=== PATIENT | male | born 1960 | race Two or more races ===

== ENCOUNTER → 2024-11-29 | Outpatient (CLI) | payer MEDICARE, MEDICAID, SELFPAY ==
[2024-11-29 09:14] LABS: Basophils # (Auto) 0.1 Thou/mm3 (0.0-0.2); Basophils % (Auto) 1 % (0-2.5); Eosinophils # (Auto) 0.1 Thou/mm3 (0.0-0.5); Eosinophils % (Auto) 1 % (0-10); Hematocrit 45.3 % (41.0-53.0); Hemoglobin 15.3 g/dL (13.5-16.0); Immature Granulocytes % (Auto) 1 % (0-0); Immature Granulocytes Auto 0.09 Thou/mm3 (0.00-0.00); Lymphocytes # (Auto) 2.6 Thou/mm3 (1.0-4.8); Lymphocytes % (Auto) 32 % (10-50); Mean Corpuscular HGB Conc 33.8 g/dl (31.0-37.0); Mean Corpuscular Volume 86 fL (80-100); Monocytes # (Auto) 0.7 Thou/mm3 (0.0-0.8); Monocytes % (Auto) 9 % (0-12); Neutrophils # (Auto) 4.6 Thou/mm3 (1.8-7.7); Neutrophils % (Auto) 57 % (37-80); Nucleated Red Blood Cell % 0 /100 WBC (0); Platelet Count 214 Thou/mm3 (140-440); RDW Standard Deviation 47.3 fL (35.1-43.9); Red Blood Count 5.27 Miln/mm3 (4.50-5.90)
[2024-11-29 09:24] LABS: Prostate Specific Antigen 7.32 ng/mL (0-4.00)
[2024-11-29 09:33] LABS: Alanine Aminotransferase 65 U/L (10-49); Albumin, Serum 4.1 gm/dL (3.4-4.8); Albumin/Globulin Ratio 1.6 (1.2-2.2); Alkaline Phosphatase 39 U/L (46-116); Anion Gap 8 (7-16); Aspartate Amino Transferase 23 U/L (0-34); BUN/Creatinine Ratio 18 Ratio (12-20); Bilirubin,Total 0.5 mg/dL (0.3-1.2); Blood Urea Nitrogen 20 mg/dL (9-23); Calcium 8.8 mg/dL (8.3-10.6); Calcium (Corrected) 8.8 mg/dL (8.5-10.1); Carbon Dioxide 27.3 mMol/L (20.0-31.0); Cardiac Risk Estimate 3.1 RATIO (4.0-6.7); Chloride 109 mMol/L (98-107); Cholesterol 132 mg/dL (132-200); Creatinine (Component) 1.1 mg/dL (0.6-1.3); Free T3 2.6 pg/mL (2.3-4.2); Free T4 (Free Thyroxine) 1.52 ng/dL (0.89-1.76); Globulin 2.5 gm/dL (2.3-3.5); Glucose 89 mg/dL (74-106); HDL Cholesterol 42 mg/dL (40-60); LDL Cholesterol,Calculated 66 mg/dL (0-130); Osmolality,Calculated 288 (275-295); Potassium 4.2 mMol/L (3.4-5.1); Sodium 144 mMol/L (136-145); Total Protein 6.6 gm/dL (5.7-8.2); Triglycerides 118 mg/dL (30-150); eGFR > 60 See Note
== END | disposition home or self-care (01) ==
LOC: COPL 08:13
PROVIDERS: PCP Nurse Practitioner Primary Care; Referring Provider Nurse Practitioner Primary Care; Visit Provider Nurse Practitioner Primary Care
DX: Z00.00 Encounter for general adult medical examination without abnormal findings (principal)
CPT/HCPCS: 36415; 80053; 80061; 84153; 84439; 84443; 84481; 85025

== ENCOUNTER → 2024-12-10 | Outpatient (BNVA) | payer MEDICARE, MEDICAID, SELFPAY | END | disposition home or self-care (01) | PROVIDERS: Visit Provider Urology | DX: N40.1 Benign prostatic hyperplasia with lower urinary tract symptoms (principal); N13.8 Other obstructive and reflux uropathy; R35.0 Frequency of micturition; Z98.890 Other specified postprocedural states; N47.1 Phimosis; I10 Essential (primary) hypertension; E11.9 Type 2 diabetes mellitus without complications; E66.9 Obesity, unspecified; E78.00 Pure hypercholesterolemia, unspecified | CPT/HCPCS: 81003; 99212; G0463 ==

== ENCOUNTER → 2024-12-21 | Outpatient (BNVA) | payer MEDICARE, MEDICAID, SELFPAY | END | disposition home or self-care (01) | PROVIDERS: PCP Nurse Practitioner Primary Care; Referring Provider Nurse Practitioner Primary Care; Visit Provider Urology | DX: N40.1 Benign prostatic hyperplasia with lower urinary tract symptoms (principal); N13.8 Other obstructive and reflux uropathy; N47.1 Phimosis; Z98.890 Other specified postprocedural states; I10 Essential (primary) hypertension; E11.9 Type 2 diabetes mellitus without complications; E66.9 Obesity, unspecified; Z68.30 Body mass index [BMI] 30.0-30.9, adult; E78.00 Pure hypercholesterolemia, unspecified | CPT/HCPCS: 81003; 99213; G0463 ==

== ENCOUNTER 2024-12-22 20:19 | Emergency (ER) | payer MEDICARE, MEDICAID, SELFPAY ==
[2024-12-22 20:32] VITALS: BP 130/85; PULSE 69; RESP 18; TEMP 37.2; O2SAT 95
--- NOTE | 2024-12-22 20:43 | PD.EDMALE ---
ED Male Genitalurinary RME/HPI General Chief complaint: Urogenital-Male Stated complaint: NOT URINATING X 3 DAYS Time Seen by Provider: 12/22/24 20:35 Arrival date/time: 12/22/24 20:19 64M with history of BPH, DM, and HTN presents to ED with 3 days of difficulty urinating. Patient saw urologist earlier today. He has surgery planned in January. Patient denies dysuria/hematuria. Limitations: no limitations Related Data Home Medications ?Medication ?Instructions ?Recorded ?Confirmed lisinopril 20 mg tablet 20 mg PO QDAY 04/18/22 12/21/24 metformin 500 mg tablet 500 mg PO BID 02/25/23 12/21/24 finasteride 5 mg tablet 5 mg PO QDAY 02/23/24 12/21/24 sitagliptin phosphate 25 mg tablet 25 mg PO QDAY 02/23/24 12/21/24 (Januvia) tamsulosin 0.4 mg capsule 0.8 mg PO QHS 12/10/24 12/21/24 Allergies Allergy/AdvReac Type Severity Reaction Status Date / Time No Known Allergies Allergy Verified 12/22/24 20:29 Review of Systems Review of Systems Systems Reviewed: All systems reviewed, normal except as documented Constitutional Constitutional: Reports system reviewed and no additional complaints, except as documented, Denies fever(s) and Denies headache(s) ENT Ears, Nose, Mouth, and Throat: Denies disequilibrium and Denies headache(s) Cardiovascular Cardiovascular: Reports system reviewed and no additional complaints, except as documented, Denies chest pain and Denies dyspnea Respiratory Respiratory: Reports system reviewed and no additional complaints, except as documented, Denies cough and Denies dyspnea Gastrointestinal Gastrointestinal: Reports system reviewed and no additional complaints, except as documented, Denies abdominal pain, Denies nausea and Denies vomiting Genitourinary Genitourinary: Reports as per HPI and Reports difficulty urinating Neurologic Neurologic: Reports system reviewed and no additional complaints, except as documented, Denies confusion, Denies disequilibrium and Denies headache(s) Psychiatric Psychiatric: Denies confusion Past Medical History Past Medical History NEUROLOGIC: Negative Neurological Disorders or Seizures CARDIAC: Positive Cardiac Disorders, Hypercholesterolemia and Hypertension; Negative Congestive Heart Failure RESPIRATORY: Negative Chronic Obstructive Pulmonary Disease (COPD) GASTROINTESTINAL: Negative Gastrointestinal Disorders GENITOURINARY: Positive Genitourinary Disorders and Benign Prostatic Hyperplasia; Negative Renal Disease REPRODUCTIVE: Negative Fibroids MUSCULOSKELETAL: Positive Musculoskeletal Disorders and Arthritis (Knees) ENDOCRINE: Negative Endocrine Disorders, Diabetes Mellitus Type 1 or Diabetes Mellitus Type 2 HEMATOLOGIC: Negative Blood Disorders OTHER HISTORY: Negative Autoimmune Disease, Blood Transfusions or Anesthesia Reactions Surgical History SURGICAL: Positive Transurethral Resection Social History SMOKING STATUS: Never smoker ED Exam General Limitations: Present no limitations General appearance: Present alert and in no apparent distress Head Head exam: Present atraumatic Eye Eye exam: Present normal appearance, PERRL and EOMI ENT ENT exam: Present normal exam, normal oropharynx and mucous membranes moist Neck Neck exam: Present normal inspection, full ROM and trachea midline Chest Chest inspection: Present normal inspection and symmetric chest wall rise Respiratory Respiratory exam: Present normal lung sounds bilaterally Cardiovascular Cardiovascular exam: Present regular rate, normal rhythm and normal heart sounds Abdominal Exam Abdominal exam: Present soft and normal bowel sounds Extremities Exam Extremities exam: Present normal inspection and full ROM Back Exam Back exam: Present normal inspection and full ROM Neurological Exam Neurological exam: Present alert, oriented X3 and CN II-XII intact Psychiatric Psychiatric exam: Present normal affect and normal mood Skin Skin exam: Present warm, dry, intact and normal color Course Quality Measures none Orders Category Date Time Status Catheter [Urinary Catheter] QS Care 12/22/24 20:42 Active Peguero to Leg Bag Routine Care 12/22/24 20:42 Ordered Vital Signs Vital signs: Vital Signs Temperature 99.0 F 12/22/24 20:32 Pulse Rate 69 12/22/24 20:32 Respiratory Rate 18 12/22/24 20:32 Blood Pressure 130/85 H 12/22/24 20:32 Pulse Oximetry (%) 95 12/22/24 20:32 Oxygen Delivery Method Room Air 12/22/24 20:32 O2 at 95% on RA and WNLs Urogenital - Male MDM Narrative MDM Narrative:: 64M with history of BPH, DM, and HTN presents to ED with 3 days of difficulty urinating. Patient saw urologist earlier today. He has surgery planned in January. Patient denies dysuria/hematuria. Physical exam reveals no pelvic tenderness. Patient is afebrile, calm, and alert. Patient refused cath/Peguero bag. They state they will follow-up with urologist. Patient data External records reviewed:: [facility] previous records Clinical information provided by:: patient Social determinants that could affect healthcare access:: none Patient has the following chronic illnesses:: BPH, DM, and HTN How is presenting disease/condition affected by chronic disease/condition?: caused by Evaluation data The following diagnostics were reviewed and interpreted by me:: other (specify) (none) Lab and/or radiology exams considered but not ordered:: not ordered Interpretation Summary: n/a Medications / Prescriptions Medications or Prescriptions considered but not ordered:: not ordered Medication administrations:: n/a Consultations Consultation(s) initiated? (list below): No Diagnosis Urogenital Male Differential Diagnosis: urinary tract infection, priapism, urethritis, epididymitis, genital herpes simplex, prostatitis, acute retention of urine and inguinal hernia Most likely diagnosis given after review of the tests above:: acute retention of urine Admission Indicated Admission indicated?: not indicated Admission Request Was there a request for admission?: No Disposition Plan Disposition Plan: Discharge Discharge Attestation Discharge Attestation: The patient and all family members were given an opportunity to ask questions and understood the discharge instructions. Discharge instructions specifically effects, indications for sooner follow up or return to the emergency department, and the expected course of current diagnosis. Patient condition: Stable Discharge Plan Plan Patient Disposition: HOME (Self Care) Disposition Comment: Stable Prescriptions/Referrals Prescriptions/Med Rec: No Action metformin 500 mg tablet 500 mg PO BID finasteride 5 mg tablet 5 mg PO QDAY Januvia 25 mg tablet 25 mg PO QDAY lisinopril 20 mg Tablet 20 mg PO QDAY tamsulosin 0.4 mg capsule 0.8 mg PO QHS Problem List Clinical Impression: Acute retention of urine Patient/Caregiver Discharge Instructions Education Materials: ED Urinary Retention, Male Additional Instructions: Please follow-up with PCP within 24-48 hours and return immediately if symptoms worsen. Follow-up with urologist/PCP for void trial. Print Language: Faroese Stand Alone Forms: Patient Portal Info Letter LUCRETIA/SUPRIYA Supervising Physician LUCRETIA/SUPRIYA Supervising Physician: Dr. Giang
== END 2024-12-22 21:00 | disposition home or self-care (01) ==
LOC: SERX 21:01
PROVIDERS: Emergency Provider Emergency Medicine
DX: N40.1 Benign prostatic hyperplasia with lower urinary tract symptoms (principal); R33.8 Other retention of urine; E11.9 Type 2 diabetes mellitus without complications; I10 Essential (primary) hypertension
CPT/HCPCS: 99281

== ENCOUNTER → 2025-01-17 | Outpatient (BNVA) | payer MEDICARE, MEDICAID, SELFPAY | END | disposition home or self-care (01) | PROVIDERS: PCP Nurse Practitioner Primary Care; Referring Provider Nurse Practitioner Primary Care; Visit Provider Urology | DX: N35.811 Other urethral stricture, male, meatal (principal); N32.89 Other specified disorders of bladder; N40.1 Benign prostatic hyperplasia with lower urinary tract symptoms; N13.8 Other obstructive and reflux uropathy; I10 Essential (primary) hypertension; E78.00 Pure hypercholesterolemia, unspecified | CPT/HCPCS: 52281; 81003; A4217; A4649; C1894; J1580; A9270 ==

== ENCOUNTER → 2025-02-11 | Outpatient (BNVA) | payer MEDICARE, MEDICAID, SELFPAY | END | disposition home or self-care (01) | PROVIDERS: PCP Nurse Practitioner Primary Care; Referring Provider Nurse Practitioner Primary Care; Visit Provider Student in an Organized Health Care Education/Training Program | DX: Z76.89 Persons encountering health services in other specified circumstances (principal) | CPT/HCPCS: 99212; G0463 ==

== ENCOUNTER 2025-02-16 09:45 | Day surgery (SDC) | payer MEDICARE, MEDICAID, SELFPAY ==
--- NOTE | 2025-02-15 08:15 | EKG_ITS ---
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
[2025-02-15 10:25] VITALS: BMI 34.4
[2025-02-15 12:28] LABS: Alanine Aminotransferase 58 U/L (10-49); Albumin, Serum 4.3 gm/dL (3.4-4.8); Albumin/Globulin Ratio 1.7 (1.2-2.2); Alkaline Phosphatase 44 U/L (46-116); Anion Gap 4 (7-16); Aspartate Amino Transferase 34 U/L (0-34); BUN/Creatinine Ratio 14 Ratio (12-20); Bilirubin,Total 0.6 mg/dL (0.3-1.2); Blood Urea Nitrogen 15 mg/dL (9-23); Calcium 9.4 mg/dL (8.3-10.6); Calcium (Corrected) 9.4 mg/dL (8.5-10.1); Carbon Dioxide 27.2 mMol/L (20.0-31.0); Chloride 111 mMol/L (98-107); Creatinine (Component) 1.1 mg/dL (0.6-1.3); Globulin 2.6 gm/dL (2.3-3.5); Glucose 102 mg/dL (74-106); Osmolality,Calculated 283 (275-295); Sodium 142 mMol/L (136-145); Total Protein 6.9 gm/dL (5.7-8.2); eGFR > 60 See Note
--- NOTE | 2025-02-15 15:03 | SUR.PREOP ---
Message left with pt's daughter to come in tomorrow at 1000.
[2025-02-16] VITALS (10 sets, daily range): BP systolic 125–152; BP diastolic 74–89; PULSE 48–64; RESP 12–18; TEMP 36.1–36.7; O2SAT 95–100; BMI 31.7
--- NOTE | 2025-02-16 15:28 | SUR.PHASEI ---
1528: Pt. AAOx4, vitals stable, breathing unlabored, no complaint of pain or nausea, dressing to penis CDI, no active bleed noted, report received from MD Lyle and Waqas SUMMERS.
[2025-02-16] MEDS: fentaNYL CIT INJ 50 mCg/ML AMP 2ML 25 MCG IV (15:38)
--- NOTE | 2025-02-16 15:45 | PD.SUROPNT ---
Date of Procedure 02/16/25 Pre Op Diagnosis Phimosis, balanitis xerotica obliterans, preputial adhesions Post Op Diagnosis Same Procedure Release of the adhesions of the prepuce and circumcision Findings Balanitis xerotica obliterans, dense preputial adhesions, phimosis Procedure Description Indication for procedure this is a 65-year-old gentleman he was seen in urology office this patient has phimosis, balanitis the xerotica obliterans patient was bothered by it he desired circumcision he also has the preputial adhesions. He was recommended release of the adhesions and circumcision procedure and complications were discussed with patient in great detail informed consent is obtained Patient was brought to the operating room in a satisfactory condition after appropriate premedication he was appropriately identified by surgeon and operating room staff site scope and indications of the procedure were reconfirmed with the patient general anesthesia was given uneventfully after patient was positioned on the operating table in a spine position parts were prepped and draped in the usual sterile fashion. Next local anesthetic was administered in the preputial area. I dilated the prepuce and released the preputial adhesions which were dense matted with the glans penis next circumferential skin incision was made in the skin aspect of the prepuce. It was carried down to various fascial layers prepuce was a retracted and another circumferential incision was made on the mucosal aspect of the prepuce leaving a cuff of about 7 to 8 mm. Skin between 2 incision was excised proper hemostasis were secured next skin to mucosa was approximated with 3-0 chromic in interrupted fashion, at the end of the procedure no active bleeding was seen. Sterile dressings were applied to the penis in the area of the incision. Next patient after having tolerated the procedure well was sent to recovery room in a satisfactory condition to be discharged home he will see me in the office tomorrow morning. Postoperative instructions are given to patient verbally as well as in writing Anesthesia GETA Pathology / specimen Other ([place]) Estimated Blood Loss 3.0 Condition Stable Disposition PACU Surgeon Ana Marrero MD Surgical Staff Operation Date: 02/16/25 13:30 Case Staff Anesthesiologist: Yossi Lyle RN First Assistant: Brittney Yan
--- NOTE | 2025-02-16 16:21 | SUR.PHASEII ---
1621: Pt. AAOx4, vitals stable, breathing unlabored, no complaint of pain or nausea, dressing to penis CDI and secured, pt. tolerated sips of apple juice well, pt. meets discharge criteria, pt. disconnected from vitals machine and is starting to get dressed with assist from his . Report given to Linda Bedolla RN to resume care/ give discharge instructions.
--- NOTE | 2025-02-16 16:21 | SUR.PHASEII ---
1621 Report received from Antonella SUMMERS, patient awake and alert, ready to proceed with discharge
--- NOTE | 2025-02-16 16:59 | SUR.PHASEII ---
1659 Patient meets discharge criteria from recovery, awake and alert, breathing unlabored, vital signs stable, denies pain, dressing intact; no bleeding noted, denies nausea, patient assisted with dressing into her clothing by his and son, discharge instructions given to patient, patient and son with the assistance of the telephone certified court interpreter Marina ID#[id number], patient son signed discharge instructions. Patient given all his belongings prior to discharge, transported via wheelchair and left in a private vehicle.
== END 2025-02-16 16:59 | disposition home or self-care (01) ==
PROVIDERS: Anesthesiology; PCP Nurse Practitioner Primary Care; Referring Provider Urology; Visit Provider Urology
PROC: (CPT 54161; principal; 2025-02-16 13:30)
DX: N47.1 Phimosis (principal); N48.0 Leukoplakia of penis; N47.5 Adhesions of prepuce and glans penis
CPT/HCPCS: 54161; 36415; 80053; 93005; A4217; A4649; J0131; J0461; J1885; J2250; J2405; J2704; J2765; J3010; J3490; A9270; J0665

== ENCOUNTER → 2025-02-17 | Outpatient (BNVA) | payer MEDICARE, MEDICAID, SELFPAY | END | disposition home or self-care (01) | PROVIDERS: PCP Nurse Practitioner Primary Care; Referring Provider Nurse Practitioner Primary Care; Visit Provider Urology | DX: N40.1 Benign prostatic hyperplasia with lower urinary tract symptoms (principal); N13.8 Other obstructive and reflux uropathy; R35.0 Frequency of micturition; R97.20 Elevated prostate specific antigen [PSA]; Z98.890 Other specified postprocedural states; I10 Essential (primary) hypertension; E78.00 Pure hypercholesterolemia, unspecified | CPT/HCPCS: 99212; 99213; G0463 ==

== ENCOUNTER → 2025-04-12 | Outpatient (BNVA) | payer MEDICARE, MEDICAID, SELFPAY | END | disposition home or self-care (01) | PROVIDERS: PCP Nurse Practitioner Primary Care; Referring Provider Nurse Practitioner Primary Care; Visit Provider Urology | DX: N40.1 Benign prostatic hyperplasia with lower urinary tract symptoms (principal); N13.8 Other obstructive and reflux uropathy; I10 Essential (primary) hypertension; E78.00 Pure hypercholesterolemia, unspecified; Z46.6 Encounter for fitting and adjustment of urinary device | CPT/HCPCS: 99212; 99213; G0463 ==

== ENCOUNTER 2025-06-14 07:12 | Emergency (ER) | payer MEDICARE, MEDICAID, SELFPAY ==
[2025-06-14 07:29] VITALS: BP 132/84; PULSE 97; RESP 20; TEMP 36.8; O2SAT 96; BMI 30.3
--- NOTE | 2025-06-14 07:32 | EDRME_ITS ---
Rapid Medical Screening Exam [facility] Arrival date/time: 06/14/25 07:12 65-year-old male presents to the emergency room today for complaint of lower abdominal pain ongoing x 4 days. Patient was seen in [facility] lab work and imaging ordered patient to be seen in the main ER for further evaluation. Chief Complaint: Abdominal Pain Time Seen by Provider: 06/14/25 07:26 Vital signs: Vital Signs Temperature 98.3 F 06/14/25 07:29 Pulse Rate 97 06/14/25 07:29 Respiratory Rate 20 06/14/25 07:29 Blood Pressure 132/84 H 06/14/25 07:29 Pulse Oximetry (%) 96 06/14/25 07:29 Oxygen Delivery Method Room Air 06/14/25 07:29
--- NOTE | 2025-06-14 07:32 | XR_ITS ---
Examination: CT abdomen and pelvis without contrast. Coronal 3-D reconstructions. Sagittal 2-D reconstructions. Date and time of exam:June 14, 2025 0916 hours INDICATIONS: Lower abdominal pain with nausea beginning today CTDI: vol (mGy): 8.86 DLP: (mGycm): 571 Technique: Axial images of the abdomen have been obtained, 3 mm slice thickness Intravenous contrast material has not been administered. Low dose protocols were performed. One or more of the following dose reduction techniques were used; automated exposure control, adjustment of the mA and/or KV according to patient size, use of iterative reconstruction technique. Findings: Severe fatty infiltration throughout the liver with focal areas of fatty sparing No intrahepatic biliary tract dilatation No extrahepatic biliary tract dilatation Spleen is not enlarged No pancreatic or adrenal mass No renal or ureteral calculi, no hydronephrosis Aorta normal size No bowel obstruction Normal appendix Colonic diverticulosis, no diverticulitis Contracted urinary bladder Transverse prostate dimension 4.1 cm Prominent osteopenia IMPRESSION: Severe diffuse fatty infiltration throughout the liver Negative for pancreatitis No renal or ureteral calculi, no hydronephrosis Normal appendix Colonic diverticulosis, no diverticulitis No bowel obstruction
[2025-06-14] MEDS: KETOROLAC INJ 30 MG/ML VIAL IM (07:46)
[2025-06-14 08:41] LABS: Collection Type, Urine Clean Catch
[2025-06-14 09:00] LABS: Bacteria,Urine Rare; Bilirubin,Urine Negative (Negative); Blood,Urine 2+ (Negative); Color,Urine Lt-Yellow (Lt Yel-Yel); Glucose, Urine Negative (Negative); Ketones,Urine Negative (Negative); Leukocyte Esterase,Urine Positive (Negative); Nitrite,Urine Negative (Negative); PH,Urine 6.0 (5.0-7.0); Protein,Urine Trace (Neg - Trace); RBC,Urine 178 /hpf (0-3); Specific Gravity,Urine 1.021 (1.001-1.035); Squamous Epithelial Cell,Urine < 1 /hpf (0-5); Urobilinogen,Urine Negative mg/dL (0.0-1.0); WBC,Urine 170 /hpf (0-5)
[2025-06-14 09:28] LABS: Clarity,Urine Hazy (Clear/Hazy); Culture Indicated,Urine Yes
[2025-06-14 09:41] LABS: Basophils # (Auto) 0.0 Thou/mm3 (0.0-0.2); Basophils % (Auto) 0 % (0-2.5); Eosinophils # (Auto) 0.0 Thou/mm3 (0.0-0.5); Eosinophils % (Auto) 0 % (0-10); Hematocrit 44.7 % (41.0-53.0); Hemoglobin 15.1 g/dL (13.5-16.0); Immature Granulocytes Auto 0.29 Thou/mm3 (0.00-0.00); Lymphocytes # (Auto) 1.6 Thou/mm3 (1.0-4.8); Lymphocytes % (Auto) 10 % (10-50); Mean Corpuscular HGB Conc 33.8 g/dl (31.0-37.0); Mean Corpuscular Hemoglobin 29.8 pg (25.0-35.0); Mean Corpuscular Volume 88 fL (80-100); Monocytes # (Auto) 0.7 Thou/mm3 (0.0-0.8); Monocytes % (Auto) 4 % (0-12); Neutrophils # (Auto) 13.9 Thou/mm3 (1.8-7.7); Neutrophils % (Auto) 84 % (37-80); Nucleated Red Blood Cell # 0.00 Thou/mm3 (0.00-0.00); Nucleated Red Blood Cell % 0 /100 WBC (0); Platelet Count 229 Thou/mm3 (140-440); RDW Standard Deviation 45.1 fL (35.1-43.9); Red Blood Count 5.06 Miln/mm3 (4.50-5.90); White Blood Count 16.5 Thou/mm3 (3.8-10.6)
[2025-06-14 10:00] LABS: Alanine Aminotransferase 85 U/L (10-49); Albumin, Serum 4.1 gm/dL (3.4-4.8); Albumin/Globulin Ratio 1.8 (1.2-2.2); Alkaline Phosphatase 51 U/L (46-116); Anion Gap 11 (7-16); Aspartate Amino Transferase 27 U/L (0-34); BUN/Creatinine Ratio 20 Ratio (12-20); Bilirubin,Total 0.8 mg/dL (0.3-1.2); Blood Urea Nitrogen 20 mg/dL (9-23); Calcium 9.4 mg/dL (8.3-10.6); Calcium (Corrected) 9.4 mg/dL (8.5-10.1); Carbon Dioxide 24.6 mMol/L (20.0-31.0); Chloride 107 mMol/L (98-107); Creatinine (Component) 1.0 mg/dL (0.6-1.3); Estimated Creatinine Clearance 72.9 mL/min (>60); Globulin 2.3 gm/dL (2.3-3.5); Glucose 88 mg/dL (74-106); Lipase 61 U/L (12-53); Osmolality,Calculated 286 (275-295); Potassium 3.7 mMol/L (3.4-5.1); Sodium 143 mMol/L (136-145); Total Protein 6.4 gm/dL (5.7-8.2); eGFR > 60 See Note
--- NOTE | 2025-06-14 10:26 | PD.EDABDPN ---
ED Abdominal Pain RME/HPI General Chief Complaint: Abdominal Pain Stated complaint: Abdominal pain X 4 days Time seen by provider: 06/14/25 07:26 Arrival date/time: 06/14/25 07:12 65-year-old male presents to the emergency room today for complaint of lower abdominal pain ongoing x 4 days. Limitations: no limitations RME / HPI RME / HPI narrative: 06/14/25 07:12 65-year-old male presents to the emergency room today for complaint of lower abdominal pain ongoing x 4 days. Patient was seen in E lab work and imaging ordered patient to be seen in the main ER for further evaluation. Related Data Home Medications ?Medication ?Instructions ?Recorded ?Confirmed metformin 500 mg tablet 1,000 mg PO BID 02/25/23 04/12/25 sitagliptin phosphate 25 mg tablet 25 mg PO QDAY 02/23/24 04/12/25 (Januvia) tamsulosin 0.4 mg capsule 0.8 mg PO QHS 12/10/24 04/12/25 fenofibrate 54 mg tablet 54 mg PO QDAY 01/17/25 04/12/25 gabapentin 100 mg capsule 100 mg PO Q8H 02/15/25 04/12/25 Previous Rx's ?Medication ?Instructions ?Recorded tramadol 50 mg tablet 50 mg PO Q8H PRN pain #20 tabs 02/16/25 ciprofloxacin HCl 500 mg tablet 500 mg PO BID 7 days #14 tabs 06/14/25 hydrocodone 5 mg-acetaminophen 325 1 tab PO BID PRN pain #6 tabs 06/14/25 mg tablet ibuprofen 600 mg tablet 600 mg PO Q6H #30 tabs 06/14/25 Allergies Allergy/AdvReac Type Severity Reaction Status Date / Time No Known Allergies Allergy Verified 06/14/25 07:16 Review of Systems Review of Systems Systems Reviewed: All systems reviewed, normal except as documented Constitutional Constitutional: Reports system reviewed and no additional complaints, except as documented, Denies fever(s) and Denies headache(s) Eyes Eyes: Reports system reviewed and no additional complaints, except as documented and Denies blurry vision ENT Ears, Nose, Mouth, and Throat: Reports system reviewed and no additional complaints, except as documented, Denies headache(s), Denies nasal congestion and Denies nasal discharge Cardiovascular Cardiovascular: Reports system reviewed and no additional complaints, except as documented, Denies chest pain and Denies dyspnea Respiratory Respiratory: Reports system reviewed and no additional complaints, except as documented, Denies chest congestion, Denies cough and Denies dyspnea Gastrointestinal Gastrointestinal: Reports system reviewed and no additional complaints, except as documented, Reports abdominal pain, Denies loose stools and Denies vomiting Integumentary/Breasts Skin/Breast: Reports system reviewed and no additional complaints, except as documented and Denies rash Neurologic Neurologic: Reports system reviewed and no additional complaints, except as documented, Reports as per HPI and Denies headache(s) Past Medical History Past Medical History NEUROLOGIC: Negative Neurological Disorders or Seizures CARDIAC: Positive Cardiac Disorders, Hypercholesterolemia and Hypertension; Negative Congestive Heart Failure RESPIRATORY: Negative Chronic Obstructive Pulmonary Disease (COPD) GASTROINTESTINAL: Negative Gastrointestinal Disorders GENITOURINARY: Positive Genitourinary Disorders and Benign Prostatic Hyperplasia; Negative Renal Disease REPRODUCTIVE: Negative Fibroids MUSCULOSKELETAL: Positive Musculoskeletal Disorders and Arthritis (Knees) ENDOCRINE: Negative Endocrine Disorders, Diabetes Mellitus Type 1 or Diabetes Mellitus Type 2 HEMATOLOGIC: Negative Blood Disorders OTHER HISTORY: Negative Autoimmune Disease, Blood Transfusions, Blood Transfusion Reaction, Anesthesia Reactions or MRSA Family History FAMILY HISTORY: Positive Family Cancer; Negative Family Psychiatric Problems, Family Respiratory Disorders, Family Cardiac Disorders, Family Gastrointestinal Problems, Family Surgery or Family Anesthesia Reaction Surgical History SURGICAL: Positive Transurethral Resection and Arthroscopy (Left knee) Social History SMOKING STATUS: Former smoker ED Exam General Limitations: Present no limitations General appearance: Present alert and in no apparent distress Head Head exam: Present atraumatic Eye Eye exam: Present normal appearance, PERRL and EOMI ENT ENT exam: Present normal exam, normal oropharynx and mucous membranes moist Neck Neck exam: Present normal inspection, full ROM and trachea midline Chest Chest inspection: Present normal inspection and symmetric chest wall rise Respiratory Respiratory exam: Present normal lung sounds bilaterally Cardiovascular Cardiovascular exam: Present regular rate, normal rhythm and normal heart sounds Abdominal Exam Abdominal exam: Present soft and normal bowel sounds Extremities Exam Extremities exam: Present normal inspection and full ROM Back Exam Back exam: Present normal inspection and full ROM Neurological Exam Neurological exam: Present alert, oriented X3 and CN II-XII intact Psychiatric Psychiatric exam: Present normal affect and normal mood Skin Skin exam: Present warm, dry, intact and normal color Course Quality Measures none Orders Category Date Time Status CT abdomen pelvis wo con Stat Exams 06/14/25 07:32 Completed CBC Stat Lab 06/14/25 09:23 Completed Comprehensive Metabolic Panel Stat Lab 06/14/25 09:23 Completed Lipase Stat Lab 06/14/25 09:23 Completed UA, C/S IF [Urinalysis, C/S if Indicated] Stat Lab 06/14/25 07:42 Completed Urine Culture Stat Lab 06/14/25 07:42 Received Ketorolac Inj [Toradol Inj] Med 06/14/25 07:32 Discontinued 30 mg IM X1 ONE Lidocaine 1% 20 ml [Xylocaine 1% 20 ML] Med 06/14/25 10:26 Discontinued 2.1 ml INFL X1 ONE cefTRIAXone [Rocephin] Med 06/14/25 10:26 Discontinued 1,000 mg IM X1 ONE Vital Signs Vital signs: Vital Signs Temperature 98.3 F 06/14/25 07:29 Pulse Rate 97 06/14/25 07:29 Respiratory Rate 20 06/14/25 07:29 Blood Pressure 132/84 H 06/14/25 07:29 Pulse Oximetry (%) 96 06/14/25 07:29 Oxygen Delivery Method Room Air 06/14/25 07:29 O2 saturation 96% room air within normal limits Abdominal Pain MDM MDM Narrative MDM Narrative:: 65-year-old male presents to the emergency room today for complaint of lower abdominal pain ongoing x 4 days. On exam patient well-appearing patient does not appear ill or toxic no acute distress Lab work and imaging obtained Imaging no acute emergent findings noted Labwork consistent with UTI Patient given pain medication, patient given Rocephin here and discharged home with antibiotics Explained to the patient should follow-up with PCP in the next 24 to 48 hours for worsening symptoms or concerns return immediately for further evaluation Patient data External records reviewed:: [facility] previous records Clinical information provided by:: patient Social determinants that could affect healthcare access:: none Patient has the following chronic illnesses:: See history How is presenting disease/condition affected by chronic disease/condition?: uneffected by Evaluation data The following diagnostics were reviewed and interpreted by me:: lab results and radiology exam(s) Lab and/or radiology exams considered but not ordered:: Labs radiology obtained Interpretation Summary: Reviewed by me Medications / Prescriptions Medications or Prescriptions considered but not ordered:: Given Medication administrations:: Medication Administration History Discontinued Medications Ceftriaxone Sodium (Ceftriaxone Sod Inj 1,000 Mg Vial) 1,000 mg IM X1 ONE Stop: 06/14/25 10:27 Last Admin: 06/14/25 10:37 Dose: 1,000 mg Documented By: Ketorolac Tromethamine (Ketorolac Inj 30 Mg/Ml Vial) 30 mg IM X1 ONE Stop: 06/14/25 07:33 Last Admin: 06/14/25 07:46 Dose: 30 mg Documented By: DB Lidocaine HCl (Lidocaine Hcl 1% 20 Ml Vial) 2.1 ml INFL X1 ONE Stop: 06/14/25 10:27 Last Admin: 06/14/25 10:37 Dose: 2.1 ml Documented By: Given Consultations Consultation(s) initiated? (list below): No Diagnosis Differential diagnosis abdominal pain: abdominal pain, acute appendicitis and pancreatitis Most likely diagnosis given after review of the tests above:: Abdominal pain Admission Indicated Admission indicated?: not indicated Admission Request Was there a request for admission?: No Disposition Plan Disposition Plan: Discharge Discharge Attestation Discharge Attestation: The patient and all family members were given an opportunity to ask questions and understood the discharge instructions. Discharge instructions specifically effects, indications for sooner follow up or return to the emergency department, and the expected course of current diagnosis. Patient condition: Stable Discharge Plan Plan Patient Disposition: HOME (Self Care) Discharge Disposition comment: Stable Prescriptions/Referrals Prescriptions/Med Rec: New hydrocodone-acetaminophen 5-325 mg tablet 1 tab PO BID MDD 10 PRN (Reason: pain) Qty: 6 0RF ciprofloxacin HCl 500 mg tablet 500 mg PO BID 7 Days Qty: 14 0RF ibuprofen 600 mg tablet 600 mg PO Q6H Qty: 30 0RF No Action metformin 500 mg tablet 1,000 mg PO BID Januvia 25 mg tablet 25 mg PO QDAY fenofibrate 54 mg tablet 54 mg PO QDAY tamsulosin 0.4 mg capsule 0.8 mg PO QHS gabapentin 100 mg capsule 100 mg PO Q8H tramadol 50 mg tablet 50 mg PO Q8H MDD 4 PRN (Reason: pain) Qty: 20 1RF Referrals: Nikia De Souza FNP ([facility]) [Primary Care Provider] - 06/15/25 Problem List Clinical Impression: Urinary tract infection, Abdominal pain Patient/Caregiver Discharge Instructions Education Materials: Abdominal Pain Additional Instructions: Please follow up with your primary care doctor in the next 24-48hrs for any worsening symptoms return here immediately Print Language: Romanian Stand Alone Forms: Diane Award Info., Patient Portal Info Letter LUCRETIA/DATABASE PROGRAMMER Supervising Physician PA/DATABASE PROGRAMMER Supervising Physician: Dr mello
[2025-06-14] MEDS: cefTRIAXone SOD INJ 1,000 MG VIAL 1000 MG IM (10:37)
[2025-06-14] MEDS: LIDOCAINE HCL 1% 20 ML VIAL 2.1 ML INFL (10:37)
== END 2025-06-14 10:46 | disposition home or self-care (01) ==
PROVIDERS: Nurse Practitioner Primary Care; Emergency Provider Family Medicine; PCP Nurse Practitioner Primary Care
DX: N39.0 Urinary tract infection, site not specified (principal); R10.30 Lower abdominal pain, unspecified
CPT/HCPCS: 36415; 74176; 80053; 81001; 83690; 85025; 87077; 87086; 87186; 96372; 99283; J0696; J1885; J3490

== ENCOUNTER 2025-06-21 08:59 | Emergency (ER) | payer MEDICARE, MEDICAID, SELFPAY ==
[2025-06-21 09:03] VITALS: BP 127/83; PULSE 81; RESP 16; TEMP 37.5; O2SAT 97; BMI 30.8; BMI 34.7
--- NOTE | 2025-06-21 09:34 | XR_ITS ---
Examination: Testicular sonography complete TECHNIQUE: Flor scale sonographic images testes, suspect arterial inflow venous outflow Doppler spectral analysis color flow analysis Date and time: June 21, 2025 1021 hours INDICATIONS: Onset left testicular swelling beginning 5 days ago. FINDINGS: Right testis is 4.3 cm epididymis 1.3 cm Arterial flow the testicle. No testicular mass Left testis is 5.3 cm epididymis 1.6 cm Arterial flow to the testicle, increased arterial flow to the testicle Moderate left varicocele IMPRESSION: Left orchitis Moderate left varicoceles
--- NOTE | 2025-06-21 09:36 | PD.EDRME ---
Rapid Medical Screening Exam RME Arrival date/time: 06/21/25 08:59 65-year-old male presents to the Emergency Department today for complaints of a 4-day history of left-sided testicular pain Chief Complaint: General Adult/Misc Complain Vital signs: Vital Signs Temperature 99.5 F 06/21/25 09:03 Pulse Rate 81 06/21/25 09:03 Respiratory Rate 16 06/21/25 09:03 Blood Pressure 127/83 06/21/25 09:03 Pulse Oximetry (%) 97 06/21/25 09:03 Oxygen Delivery Method Room Air 06/21/25 09:03
[2025-06-21 10:07] LABS: Basophils # (Auto) 0.1 Thou/mm3 (0.0-0.2); Basophils % (Auto) 1 % (0-2.5); Eosinophils # (Auto) 0.1 Thou/mm3 (0.0-0.5); Eosinophils % (Auto) 1 % (0-10); Hematocrit 43.8 % (41.0-53.0); Hemoglobin 15.2 g/dL (13.5-16.0); Immature Granulocytes Auto 0.64 Thou/mm3 (0.00-0.00); Lymphocytes # (Auto) 2.5 Thou/mm3 (1.0-4.8); Lymphocytes % (Auto) 29 % (10-50); Mean Corpuscular HGB Conc 34.7 g/dl (31.0-37.0); Mean Corpuscular Hemoglobin 30.1 pg (25.0-35.0); Mean Corpuscular Volume 87 fL (80-100); Monocytes # (Auto) 0.8 Thou/mm3 (0.0-0.8); Monocytes % (Auto) 9 % (0-12); Neutrophils # (Auto) 4.6 Thou/mm3 (1.8-7.7); Neutrophils % (Auto) 53 % (37-80); Nucleated Red Blood Cell # 0.00 Thou/mm3 (0.00-0.00); Nucleated Red Blood Cell % 0 /100 WBC (0); Platelet Count 340 Thou/mm3 (140-440); RDW Standard Deviation 43.8 fL (35.1-43.9); Red Blood Count 5.05 Miln/mm3 (4.50-5.90); White Blood Count 8.6 Thou/mm3 (3.8-10.6)
[2025-06-21 10:08] LABS: Alanine Aminotransferase 52 U/L (10-49); Albumin, Serum 4.1 gm/dL (3.4-4.8); Albumin/Globulin Ratio 1.5 (1.2-2.2); Alkaline Phosphatase 50 U/L (46-116); Anion Gap 11 (7-16); Aspartate Amino Transferase 23 U/L (0-34); BUN/Creatinine Ratio 11 Ratio (12-20); Bilirubin,Total 0.8 mg/dL (0.3-1.2); Blood Urea Nitrogen 13 mg/dL (9-23); Calcium 9.8 mg/dL (8.3-10.6); Calcium (Corrected) 9.8 mg/dL (8.5-10.1); Carbon Dioxide 24.5 mMol/L (20.0-31.0); Chloride 108 mMol/L (98-107); Creatinine (Component) 1.2 mg/dL (0.6-1.3); Estimated Creatinine Clearance 60.5 mL/min (>60); Globulin 2.8 gm/dL (2.3-3.5); Glucose 99 mg/dL (74-106); Lipase 93 U/L (12-53); Osmolality,Calculated 285 (275-295); Potassium 3.7 mMol/L (3.4-5.1); Sodium 143 mMol/L (136-145); Total Protein 6.9 gm/dL (5.7-8.2); eGFR > 60 See Note
[2025-06-21 10:30] LABS: Collection Type, Urine Clean Catch
[2025-06-21 10:40] LABS: Bacteria,Urine Rare; Bilirubin,Urine Negative (Negative); Blood,Urine 2+ (Negative); Clarity,Urine Turbid (Clear/Hazy); Color,Urine Yellow (Lt Yel-Yel); Glucose, Urine Negative (Negative); Hyaline Casts,Urine < 1 /hpf (0-1); Ketones,Urine Negative (Negative); Leukocyte Esterase,Urine Positive (Negative); Nitrite,Urine Negative (Negative); PH,Urine 5.5 (5.0-7.0); Protein,Urine Trace (Neg - Trace); RBC,Urine 61 /hpf (0-3); Specific Gravity,Urine 1.019 (1.001-1.035); Squamous Epithelial Cell,Urine < 1 /hpf (0-5); Urobilinogen,Urine Negative mg/dL (0.0-1.0); WBC,Urine 311 /hpf (0-5)
[2025-06-21 10:48] LABS: Culture Indicated,Urine Yes
--- NOTE | 2025-06-21 13:10 | PD.EDMALE ---
ED Male Genitalurinary RME/HPI General Chief complaint: General Adult/Misc Complain Stated complaint: L) TESTICLE SWOLLEN, PAIN Time Seen by Provider: 06/21/25 10:37 Source: patient Arrival date/time: 06/21/25 08:59 65-year-old male with a history of type 2 diabetes, BPH presents to the emergency room with a chief complaint of swelling and tenderness to the left testicle x 4 days Mode of arrival: ambulatory Limitations: no limitations RME / HPI RME / HPI Narrative: 06/21/25 08:59 65-year-old male presents to the Emergency Department today for complaints of a 4-day history of left-sided testicular pain Related Data Home Medications ?Medication ?Instructions ?Recorded ?Confirmed metformin 500 mg tablet 1,000 mg PO BID 02/25/23 04/12/25 sitagliptin phosphate 25 mg tablet 25 mg PO QDAY 02/23/24 04/12/25 (Januvia) tamsulosin 0.4 mg capsule 0.8 mg PO QHS 12/10/24 04/12/25 fenofibrate 54 mg tablet 54 mg PO QDAY 01/17/25 04/12/25 gabapentin 100 mg capsule 100 mg PO Q8H 02/15/25 04/12/25 Previous Rx's ?Medication ?Instructions ?Recorded tramadol 50 mg tablet 50 mg PO Q8H PRN pain #20 tabs 02/16/25 hydrocodone 5 mg-acetaminophen 325 1 tab PO BID PRN pain #6 tabs 06/14/25 mg tablet ibuprofen 600 mg tablet 600 mg PO Q6H #30 tabs 06/14/25 levofloxacin 500 mg tablet 500 mg PO QDAY 10 days #10 tabs 06/21/25 nitrofurantoin 100 mg PO Q12H 5 days #10 caps 06/21/25 monohydrate/macrocrystals 100 mg capsule (Macrobid) Allergies Allergy/AdvReac Type Severity Reaction Status Date / Time No Known Allergies Allergy Verified 06/21/25 09:07 Review of Systems Review of Systems Systems Reviewed: All systems reviewed, normal except as documented Constitutional Constitutional: Reports system reviewed and no additional complaints, except as documented, Denies fatigue, Denies fever(s), Denies headache(s) and Denies weakness Eyes Eyes: Reports system reviewed and no additional complaints, except as documented, Denies blurry vision and Denies change in vision ENT Ears, Nose, Mouth, and Throat: Reports system reviewed and no additional complaints, except as documented, Denies otalgia, Denies headache(s), Denies nasal congestion, Denies throat swelling and Denies vertigo Cardiovascular Cardiovascular: Reports system reviewed and no additional complaints, except as documented, Denies chest pain, Denies dyspnea and Denies dyspnea on exertion Respiratory Respiratory: Reports system reviewed and no additional complaints, except as documented, Denies chest congestion, Denies cough, Denies dyspnea, Denies dyspnea on exertion and Denies wheezing Gastrointestinal Gastrointestinal: Reports system reviewed and no additional complaints, except as documented, Denies abdominal pain, Denies cramping, Denies nausea and Denies vomiting Genitourinary Genitourinary: Reports system reviewed and no additional complaints, except as documented, Denies dysuria, Denies hematuria, Reports scrotal swelling and Reports testicular pain Musculoskeletal Musculoskeletal: Reports system reviewed and no additional complaints, except as documented and Denies back pain Integumentary/Breasts Skin/Breast: Reports system reviewed and no additional complaints, except as documented and Denies wounds Neurologic Neurologic: Reports system reviewed and no additional complaints, except as documented, Denies confusion, Denies headache(s), Denies lack of coordination, Denies vertigo and Denies weakness Psychiatric Psychiatric: Reports system reviewed and no additional complaints, except as documented, Denies anxiety, Denies confusion, Denies depression, Denies paranoia, Denies suicidal ideation and Denies tactile hallucinations Endocrine Endocrine: Reports system reviewed and no additional complaints, except as documented and Denies fatigue Hematologic/Lymphatic Hematologic/Lymphatic: Reports system reviewed and no additional complaints, except as documented and Denies lymphadenopathy Allergic/Immunologic Allergic/Immunologic: Reports system reviewed and no additional complaints, except as documented, Denies throat swelling, Denies urticaria and Denies wheezing ED Exam General Limitations: Present no limitations General appearance: Present alert and in no apparent distress Head Head exam: Present atraumatic Eye Eye exam: Present normal appearance, PERRL and EOMI ENT ENT exam: Present normal exam, normal oropharynx and mucous membranes moist Neck Neck exam: Present normal inspection, full ROM and trachea midline Chest Chest inspection: Present normal inspection and symmetric chest wall rise Respiratory Respiratory exam: Present normal lung sounds bilaterally Cardiovascular Cardiovascular exam: Present regular rate, normal rhythm and normal heart sounds Abdominal Exam Abdominal exam: Present soft and normal bowel sounds exam: Present testicular tenderness and scrotal swelling; Absent circumcised Expanded Exam Scrotal exam: left: testicular tenderness, testicular swelling and abnormal testicular lie and bilateral: cremasteric reflex present Extremities Exam Extremities exam: Present normal inspection and full ROM Back Exam Back exam: Present normal inspection and full ROM Neurological Exam Neurological exam: Present alert, oriented X3 and CN II-XII intact Psychiatric Psychiatric exam: Present normal affect and normal mood Skin Skin exam: Present warm, dry, intact and normal color Course Quality Measures none Orders Category Date Time Status US testicular Stat Exams 06/21/25 09:34 Completed CBC Stat Lab 06/21/25 09:44 Completed Comprehensive Metabolic Panel Stat Lab 06/21/25 09:44 Completed Lipase Stat Lab 06/21/25 09:44 Completed UA, C/S IF [Urinalysis, C/S if Indicated] Stat Lab 06/21/25 10:00 Completed Urine Culture Stat Lab 06/21/25 10:00 Received Vital Signs Vital signs: Vital Signs Temperature 99.5 F 06/21/25 09:03 Pulse Rate 81 06/21/25 09:03 Respiratory Rate 16 06/21/25 09:03 Blood Pressure 127/83 06/21/25 09:03 Pulse Oximetry (%) 97 06/21/25 09:03 Oxygen Delivery Method Room Air 06/21/25 09:03 Urogenital - Male MDM Narrative MDM Narrative:: 65-year-old male with a history of type 2 diabetes, BPH presents to the emergency room with a chief complaint of swelling and tenderness to the left testicle x 4 days patient is hemodynamically stable and in no apparent distress. The patient is afebrile not tachycardic not tachypneic Physical examination shows left-sided testicular swelling as well as tenderness with palpation of the left testicle. There is only mild swelling and there is a bilateral hemostatic reflex present Patient states the swelling has been going on for the last 4 days and has not gotten worse or better but the patient is feeling discomfort. An ultrasound of the testicles was completed and the results bilateral arterial flow but the ultrasound did find some left-sided testicle orchitis and some moderate left varicoceles. Antibiotics are sent to the patient's pharmacy Patient was discharged and educated to follow-up with primary care provider in the next 24 to 48 hours and return to the emergency room for any evidence of worsening signs or symptoms Patient data External records reviewed:: [facility] previous records Clinical information provided by:: patient Social determinants that could affect healthcare access:: none Patient has the following chronic illnesses:: Type 2 diabetes, hypertension, BPH How is presenting disease/condition affected by chronic disease/condition?: exacerbated by Evaluation data The following diagnostics were reviewed and interpreted by me:: lab results and radiology exam(s) Lab and/or radiology exams considered but not ordered:: Labs and radiology exams considered and ordered Interpretation Summary: Testicular ultrasound-FINDINGS: Right testis is 4.3 cm epididymis 1.3 cm Arterial flow the testicle. No testicular mass Left testis is 5.3 cm epididymis 1.6 cm Arterial flow to the testicle, increased arterial flow to the testicle Moderate left varicocele IMPRESSION: Left orchitis Moderate left varicoceles Medications / Prescriptions Medications or Prescriptions considered but not ordered:: Rx given Medication administrations:: Rx given Consultations Consultation(s) initiated? (list below): No Diagnosis Urogenital Male Differential Diagnosis: urinary tract infection, epididymitis, prostatitis and other (Orchitis/) Most likely diagnosis given after review of the tests above:: Orchitis Admission Indicated Admission indicated?: not indicated Admission Request Was there a request for admission?: No Disposition Plan Disposition Plan: Discharge Discharge Attestation Discharge Attestation: The patient and all family members were given an opportunity to ask questions and understood the discharge instructions. Discharge instructions specifically effects, indications for sooner follow up or return to the emergency department, and the expected course of current diagnosis. Patient condition: Stable Discharge Plan Plan Patient Disposition: HOME (Self Care) Discharge Disposition comment: stable Prescriptions/Referrals Prescriptions/Med Rec: New nitrofurantoin monohyd/m-cryst [Macrobid] 100 mg capsule 100 mg PO Q12H 5 Days Qty: 10 0RF Rx Instructions: must administer with a meal/food levofloxacin 500 mg tablet 500 mg PO QDAY 10 Days Qty: 10 0RF No Action metformin 500 mg tablet 1,000 mg PO BID Januvia 25 mg tablet 25 mg PO QDAY fenofibrate 54 mg tablet 54 mg PO QDAY tamsulosin 0.4 mg capsule 0.8 mg PO QHS gabapentin 100 mg capsule 100 mg PO Q8H tramadol 50 mg tablet 50 mg PO Q8H MDD 4 PRN (Reason: pain) Qty: 20 1RF hydrocodone-acetaminophen 5-325 mg tablet 1 tab PO BID MDD 10 PRN (Reason: pain) Qty: 6 0RF ibuprofen 600 mg tablet 600 mg PO Q6H Qty: 30 0RF Referrals: Ap (YANICK),PINKY Montejo [Primary Care Provider] - In 1 week Problem List Clinical Impression: Orchitis of left testicle Patient/Caregiver Discharge Instructions Education Materials: Treating Epididymitis and Orchitis, What are Epididymitis and Orchitis?, ED Orchitis Additional Instructions: Please follow-up with your primary care provider in the next 24 to 48 hours The ultrasound was completed and shows infection and inflammation of your left testicle. Antibiotics were sent to your pharmacy please pick them up and take them as indicated For any evidence of worsening signs or symptoms return to the emergency room immediately Print Language: Chinese Stand Alone Forms: Diane Award Info., Patient Portal Info Letter PA/SUPRIYA Supervising Physician PA/SUPRIYA Supervising Physician: Dr. Castellano
== END 2025-06-21 13:10 | disposition home or self-care (01) ==
PROVIDERS: Emergency Provider Nurse Practitioner Primary Care; PCP Physician Assistant
DX: N45.2 Orchitis (principal); I86.1 Scrotal varices
CPT/HCPCS: 36415; 76870; 80053; 81001; 83690; 85025; 87086; 99283

== ENCOUNTER → 2025-10-11 | Outpatient (BNVA) | payer MEDICARE, MEDICAID, SELFPAY | END | disposition home or self-care (01) | PROVIDERS: PCP Nurse Practitioner Primary Care; Referring Provider Nurse Practitioner Primary Care; Visit Provider Urology | DX: N40.1 Benign prostatic hyperplasia with lower urinary tract symptoms (principal); N13.8 Other obstructive and reflux uropathy; Z90.79 Acquired absence of other genital organ(s); I10 Essential (primary) hypertension | CPT/HCPCS: 99212; 99213; G0463 ==